=== PATIENT | female | born 1980 | race Two or more races ===

== ENCOUNTER 2021-05-29 15:14 | Emergency (ER) | payer SELFPAY ==
[~2021-05-29] VITALS: Ht 154.9 cm; Wt 91.2 kg
[2021-05-29] MEDS ORDERED: ACETAMINOPHEN 325 MG TABLET PO ONE (16:00)
[2021-05-29] MEDS ORDERED: ACETAMINOPHEN 325 MG TABLET ONE (16:01)
[2021-05-29 16:26] LABS: HEMATOCRIT 36.3 % (31.2-41.9); MEAN CORPUSCULAR HEMOGLOBIN 27.2 uug (24.7-32.8); MEAN CORPUSCULAR VOLUME 83.7 fL (75.5-95.3); PLATELET COUNT (AUTO) 359 K/uL (179-408)
[2021-05-29 16:31] LABS: CREATININE 0.7 mg/dL (0.6-1.3); POTASSIUM 4.2 mmol/L (3.5-5.1)
--- NOTE | 2021-05-29 17:03 | NUR ---
Patient discharged to home in stable condition. Written and verbal after care instructions given. Patient verbalizes understanding of instructions. Stressed follow up or return to ER for worsening s/s.
[2021-05-29] MEDS ORDERED: ALBU2.5V13 NEB (17:06)
[2021-05-29] MEDS ORDERED: ALBU6.7H9 INH (17:06)
[2021-05-29 17:13] VITALS: BP 130/80
== END 2021-05-29 17:13 | disposition home or self-care (01) ==
LOC: ER 15:21
DX: U07.1 COVID-19 (principal); R43.8 Other disturbances of smell and taste
CPT/HCPCS: 36415; 85025; A4663